=== PATIENT | male | born 1980 | race African-American/Black ===

== ENCOUNTER 2019-02-10 10:08 | Emergency (ER) | payer SELFPAY | END 2019-02-10 12:40 | disposition home or self-care (01) | LOC: ERS 10:08 | DX: N49.2 Inflammatory disorders of scrotum (principal) | CPT/HCPCS: 99282 ==

== ENCOUNTER 2024-05-29 02:30 | Emergency (ER) | payer SELFPAY | END 2024-05-29 04:20 | disposition home or self-care (01) | LOC: ERS 02:30 | DX: F15.10 Other stimulant abuse, uncomplicated (principal) | CPT/HCPCS: 99283 ==

== ENCOUNTER 2025-01-29 04:15 | Emergency (ER) | payer OTHER, SELFPAY ==
[2025-01-29] MEDS ORDERED: Dexamethasone 10 MG/ML VIAL ONE (04:28)
[2025-01-29] MEDS ORDERED: diphenhydrAMINE 50 MG/ML VIAL ONE (04:29)
[2025-01-29] MEDS ORDERED: Famotidine/PF 20 mg/2ml Vial ONE (04:29)
[2025-01-29 04:40] LABS: #Basophils 0.05 10x3/uL (0.0-0.2); #Eosinophils 0.27 10x3/uL (0.0-0.7); #Monocytes 0.81 10x3/uL (0.11-0.59); #Neutrophils 5.48 10x3/uL (1.40-6.50); %Basophils 0.5 % (0.0-1.0); %Eosinophils 2.8 % (0.0-10.0); %Lymphocytes 30.7 % (21.0-51.0); %Monocytes 8.4 % (0.0-10.0); %Neutrophils 56.9 % (42.0-75.0); Hematocrit 38.5 % (42.0-52.0); Hemoglobin 13.1 g/dL (14.0-18.0); Mean Corpuscular Hemoglobin 30.4 pg (27.0-31.0); Mean Corpuscular Volume 89.3 fL (78.0-98.0); Platelet Count 302 10x3/uL (130-400); Red Blood Cell (RBC) Count 4.31 mill/uL (4.70-6.10); White Blood Cell (WBC) Count 9.64 10x3/uL (4.8-10.8)
[2025-01-29 04:56] LABS: ALT (SGPT) 10 U/L (Less than 45); AST (SGOT) 24 U/L (11-34); Albumin 4.6 g/dL (3.1-4.5); Alkaline Phosphatase 87 U/L (40-110); Anion Gap 14 mmol/L (10-20); BUN (Urea Nitrogen) 12 mg/dL (8.9-20.6); Bilirubin, Total 0.7 mg/dL (0.3-1.2); Calc. Creatinine Clearance 0 mL/min (70-130); Calcium 9.0 mg/dL (7.8-10.44); Carbon Dioxide 26 mmol/L (22-29); Chloride 105 mmol/L (98-107); Globulin 3.0 g/dL (2.4-3.5); Glucose 101 mg/dL (70-105); Potassium 3.8 mmol/L (3.5-5.1); Sodium 141 mmol/L (136-145)
[2025-01-29] MEDS ORDERED: Iopamidol-370 76% 500 ML MDV (1 ML CHARGE) ONE (11:16)
== END 2025-01-29 21:15 | disposition short-term general hospital (02) ==
LOC: EEVIPCON 04:15 → ERS 04:15
DX: T78.3XXA Angioneurotic edema, initial encounter (principal)
CPT/HCPCS: 70491; 80053; 85025; 93005; 96361; 96372; 96374; 96375; J0169; J1100; J1200; J1308